=== PATIENT | female | born 1995 | race Caucasian/White ===

== ENCOUNTER 2025-06-02 10:03 | Outpatient (AMB) | payer MEDICAID, SELFPAY ==
[2025-06-02 10:33] VITALS: BP 123/79; PULSE 89; RESP 17; TEMP 36.5; O2SAT 96; BMI 50.5
--- NOTE | 2025-06-02 10:33 | OBCLNT_ITS ---
Vital Signs 06/02/25 10:33 Height 1.68 m Height Method Measured Weight 142.201 kg Weight Measurement Method Standing Scale BMI 50.5 BP 123/79 Blood Pressure Source Automatic Cuff Blood Pressure Location Right Upper Arm Position Sitting Respiration 17 Pulse 89 Pulse Source Monitor Temp 97.7 F Temp Source Temporal Artery Scan Pulse Oximetry (%) 96 Oxygen Delivery Method Room Air Allergies/Home Meds Allergies & Medications Allergies NKA* Allergy (Uncoded 06/02/25 10:34) Medication Reconciliation Vitamin * 1 tab PO QDAY supplement #0 tabs 08/26/14 [History Confirmed 06/02/25] Intake Visit Data Collection New Patient or Established: New Patient (never been to [facility]) Reason for Visit:: OB TRANSFER Consent obtained for Telemed Visit: No Seen by Clinical Staff ONLY (RN/MA): No Technical Documentation Specialist Required: No Do You Feel Safe at Home: Yes Authorities Contacted: N/A PCP or OBGYN visit in last 3 months: No Hx Now: Yes Are you currently on any form of Control: No Pain Present Currently: No Pain Scale Used: Masters-Cotton/Numerical Pain scale:: 0 Smoking Status Smoking Status: Never smoker Questionnaires Covid-19 Vaccine Questionnaire Has patient been vacinated for Covid-19 Have you been vacinated for Covid-19: Yes PHQ-9 PHQ-2 Over the last 2 weeks, how often have you been bothered by any of the following problems? 1. Little interest or pleasure in doing things: not at all 2. Feeling down, depressed, or hopeless: not at all Total score: 0 PHQ-9 3. Trouble falling or staying asleep, or sleeping too much: Not at all 4. Feeling tired or having little energy: Not at all 5. Poor appetite or overeating: Not at all 6. Feeling bad about yourself - or that you are a failure or have let yourself or your family down: Not at all 7. Trouble concentrating on things, such as reading the newspaper or watching television: Not at all 8. Moving or speaking so slowly that other people could have noticed? - Or the opposite - being so fidgety or restless that you have been moving around a lot more than usual: not at all 9. Thoughts that you would be better off or of hurting yourself in some way: Not at all Total score: 0 If you checked off any problems, how difficult have these problems made it for you to do your work, take care of things at home, or get along with other people?: not difficult at all Source: Developed by Drs. Darryl Hernandez, Brenda Aaron, Mukul Thibodeaux and colleagues, with an educational sivakumar from [employer]. Social History Living Situation History Marital Status: Lives With: Family Housing: House Tobacco History Smoking Status: Never smoker Alcohol History Alcohol Intake: Never Domestic Abuse History Do You Feel Safe at Home: Yes History of Present Illness HPI Narrative Alondra Cruz, a woman with a history of 3 C-sections, presents for transfer of care from Dr. Reyse. Her estimated due date is July 08, 2025, e stablished by ultrasound on October 01, 2024, consistent with her last menstrual period. The patient reports feeling a little bit tired and experiencing a little bit of pressure down there, which is expected at this stage of . She denies any contractions or cramping. The baby is moving normally. Her is significant for obesity, multiparity, and an anterior marginal placenta, which is noted to be generally not a risk. She has no diabetes, high blood pressure, or other complications in the . The patient expresses a desire to have her scheduled on a Sunday to accommodate family support for her other children. She has four children, all boys, aged 12, 10, and 5, with this being her fourth son. She has stable ligation consent and plans for a tubal ligation during the . Her obstetric history includes G4 T3 L3, with 3 previous C-sections. The current is significant for obesity, multiparity, 3 previous C- sections, and anterior marginal placenta. The patient's surgical history includes three sections. She lives with her children, including four sons (ages 12, 10, 5, and expecting). Review of systems is positive for fatigue and pelvic pressure. OB Initial Visit OB Flowsheet OB Flowsheet Initial Weight: Not Recorded Date -?-?-?-?-?-?-?-?-?-?-?-?- EGA Weight BP Alb Glu CTX Pres Fundal ht FHR Mov Dilation Station Effacement Hx Notes Visit Note 06/02/25 -?-?-?-?-?-?-?-?-?-?-?-?- 34w 6d 142.201 kg 123/79 absent cephalic 36 14 2 33yo at 34w with h/o 3 prior C-sections, obesity, anterior marginal placenta, reports fatigue and pelvic pressure, FHR 142, no ctx or cramping, ligation consent signed. Plan: Schedule C/S + BTL for 07/03 @12:30 (arrive 10:00), give pre-op instructions 1 week prior, follow-up in 2w then weekly, GBS swab in 1w Menstrual History Menstrual reliability: definite Flow: normal Menstrual regularity: regular Monthly: Yes On control pills at conception: No Date of positive home test: 09/05/24 OB History : 4 Para: 3 Hx # Pregnancies: 0 Hx Total # of Abortions (Spontaneous & Elective): 0 # of Living Children: 3 Infection History & Risk Evaluation History of STDs: none HIV risk evaluation: low risk Hepatitis B risk evaluation: low risk Patient or partner has history of Genital Herpes: No Genetic Screening & History Genetic Screening/Teratology Counseling - Includes patient, baby's father, or anyone in either family with: 1. Patient's age 35 years or older as of estimated date of delivery: No 2. Thalassemia (Telugu, Mongolian, Mediterranean, or Background); MCV less than 80: No 3. Neural Tube Defect (Meningomyelocele, Spina Bifida, or Anencephaly): No 4. Congenital Heart Defect: No 5. Down Syndrome: No 6. Yoshi-Sachs (Ashkenazi Orthodoxy, Cajun, [place]ian [place]): No 7. Agueda Disease (Ashkenazi Orthodoxy): No 8. Familial Dysautonomia (Ashkenazi Orthodoxy): No 9. Sickle Cell Disease or Trait (): No 10. Hemophilia or other blood disorders: No 11. Muscular Dystrophy: No 12. Cystic Fibrosis: No 13. Saima's Chorea: No 14. Mental Retardation/Autism: No 15. Other inherited genetic or chromosomal disorder: No 16. Maternal Metabolic Disorder (EG,TYPE 1 Diabetes, PKU): No 17. Patient or baby's father had a child with defects not listed above: No 18. Recurrent loss or a stillbirth: No 19. Medications (including supplements, vitamins, herbs or otc drugs)/illicit/recreational drugs/alcohol since last menstrual period: No 20. Any other: No Infection History 1. Live with someone with TB or exposed to TB: No 2. Rash or viral illness since last menstrual period: No 3. Hepatitis B,C: No Other (see comments) Source: [employer] Review of Systems Review of Systems Systems Reviewed: All systems reviewed, normal except as documented Exam General Limitations: no limitations General Appearance: alert, in no apparent distress and comfortable Head Head exam: atraumatic and normocephalic Eye Eye exam: Present normal appearance, PERRL and EOMI Neck Neck exam: Present normal inspection and full ROM Chest Chest inspection: Present normal inspection and symmetric chest wall rise; Absent tenderness Resp Respiratory exam: Present normal lung sounds bilaterally; Absent respiratory distress Card Cardiovascular exam: Present regular rate and normal rhythm Abdominal Abdominal exam: Present soft and normal bowel sounds; Absent tenderness, guarding, rebound or rigidity Neuro Neurological exam: Present alert and oriented X3 Psych Psychiatric exam: Present normal affect Office Procedures OB Clinic LOC & Office Proc's Nursing/Assessment Patient Status: Initial/New Patient OB Clinic Nursing Assessment: Medication Reconciliation, Update PMH in EMR and Vital Signs OB Clinic Coordination of Care: Complex Care and Chronic Disease 1-5, Consent,records obtained, informed consent, Education Simp Pt/Fam and 4+ Authorizations needed Special Needs: Heart tones New Patient Charge New Patient Point Assignment: [id number] New Patient Point Charge: INVESTMENT DIRECTOR Level 4 ([id number]) Assessment & Plan Diagnosis / Problem List (1) Supervision of high risk , unspecified, third trimester: Status: Acute Plan Management: Continue care with visits every 2 weeks, then weekly closer to delivery date. Attend scheduled ultrasound appointment tomorrow at [facility]. Perform GBS culture in approximately 1 week. Scheduled Repeat with Bilateral Tubal Ligation: Set for 07/03/2025 at 12:30 PM (39 weeks 2 days gestation). Patient to arrive at hospital at 10:00 AM. Informed consent for tubal ligation previously obtained and documented. Pre-operative Preparation: Patient to complete hospital pre-registration prior to scheduled . Provide pre-operative instructions sheet 1 week prior to surgery.
== END 2025-06-02 10:55 | disposition home or self-care (01) ==
LOC: HODSOBC 10:03
PROVIDERS: Supervising Provider Obstetrics & Gynecology; Visit Provider Obstetrics & Gynecology
DX: O09.293 Supervision of pregnancy with other poor reproductive or obstetric history, third trimester (principal); O34.219 Maternal care for unspecified type scar from previous cesarean delivery; O09.893 Supervision of other high risk pregnancies, third trimester; O99.213 Obesity complicating pregnancy, third trimester; Z3A.34 34 weeks gestation of pregnancy
CPT/HCPCS: 99204; G0463

== ENCOUNTER 2025-06-16 10:23 | Outpatient (AMB) | payer MEDICAID, SELFPAY ==
[2025-06-16 10:33] VITALS: BP 126/85; PULSE 93; RESP 18; TEMP 36.7; O2SAT 96; BMI 50.4
--- NOTE | 2025-06-16 10:33 | OBCLNT_ITS ---
Vital Signs 06/16/25 10:33 Height 1.68 m Height Method Stated Weight 142.428 kg Weight Measurement Method Standing Scale BMI 50.4 BP 126/85 H Blood Pressure Source Automatic Cuff Blood Pressure Location Left Upper Arm Position Sitting Respiration 18 Pulse 93 Pulse Source Monitor Temp 98.1 F Temp Source Oral Pulse Oximetry (%) 96 Oxygen Delivery Method Room Air Allergies/Home Meds Allergies & Medications Allergies No Known Allergies Allergy (Verified 07/03/25 05:46) Medication Reconciliation Vitamin * 1 tab PO QDAY supplement #0 tabs 08/26/14 [History Confirmed 07/03/25] Intake Visit Data Collection New Patient or Established: Established Patient (seen at [facility] within 3 years) Reason for Visit:: CARE Seen by Clinical Staff ONLY (RN/MA): No Brand Protection Manager Required: No Do You Feel Safe at Home: Yes Authorities Contacted: N/A PCP or OBGYN visit in last 3 months: Yes Hx Now: No Are you currently on any form of Control: No Pain Present Currently: No Pain Scale Used: Masters-Cotton/Numerical Pain scale:: 0 Smoking Status Smoking Status: Never smoker Questionnaires Covid-19 Vaccine Questionnaire Has patient been vacinated for Covid-19 Have you been vacinated for Covid-19: Yes PHQ-9 PHQ-2 Over the last 2 weeks, how often have you been bothered by any of the following problems? 1. Little interest or pleasure in doing things: not at all 2. Feeling down, depressed, or hopeless: not at all Total score: 0 PHQ-9 3. Trouble falling or staying asleep, or sleeping too much: Not at all 4. Feeling tired or having little energy: Not at all 5. Poor appetite or overeating: Not at all 6. Feeling bad about yourself - or that you are a failure or have let yourself or your family down: Not at all 7. Trouble concentrating on things, such as reading the newspaper or watching television: Not at all 8. Moving or speaking so slowly that other people could have noticed? - Or the opposite - being so fidgety or restless that you have been moving around a lot more than usual: not at all 9. Thoughts that you would be better off or of hurting yourself in some way: Not at all Total score: 0 Source: Developed by Drs. Darryl Hernandez, Brenda Aaron, Mukul Thibodeaux and colleagues, with an educational sivakumar from [employer]. Depression screen completed yes Social History Living Situation History Lives With: Family Housing: House Tobacco History Smoking Status: Never smoker Alcohol History Alcohol Intake: Never Domestic Abuse History Do You Feel Safe at Home: Yes Care OB Visit Log OB Flowsheet Initial Weight: Not Recorded Date -?-?-?-?-?-?-?-?-?-?-?-?- EGA Weight BP Alb Glu CTX Pres Fundal ht FHR Mov Dilation Station Effacement Hx Notes Visit Note 06/02/25 -?-?-?-?-?-?-?-?-?-?-?-?- 34w 6d 142.201 kg 123/79 absent cephalic 36 14 2 33yo at 34w with h/o 3 prior C-sections, obesity, anterior marginal placenta, reports fatigue and pelvic pressure, FHR 142, no ctx or cramping, ligation consent signed. Plan: Schedule C/S + BTL for 07/03 @12:30 (arrive 10:00), give pre-op instructions 1 week prior, follow-up in 2w then weekly, GBS swab in 1w 06/16/25 -?-?-?-?-?-?-?-?-?-?-?-?- 36w 6d 142.428 kg 126/85 absent cephalic 37 14 5 progressing normally at 36-37 weeks gestation. heart rate 155 bpm, within normal range. Ultrasound findings unremarkable with cephalic presentation and anterior placenta, no previa noted. Patient denies contractions or other concerning symptoms. Group B Streptococcus (GBS) screening swab obtained. Plan - Follow up in one week - Scan ultrasound report into patient's chart for reference during delivery KIMBERLEE Calculator Estimated Delivery Date Method Current WG Current Estimate 07/08/25 LMP (Certain) 39w 2d Notes Visit Date: 06/02/25 Last Updated by: Richie Asher MD Problem List - - Obesity - Multiparity - History of 3 sections - Anterior marginal placenta Office Procedures OB Clinic LOC & Office Proc's Nursing/Assessment Patient Status: Established Patient OB Clinic Nursing Assessment: Medication Reconciliation, Update PMH in EMR and Vital Signs OB Clinic Coordination of Care: Complex Care and Chronic Disease 1-5, Consent,records obtained, informed consent, Education Simp Pt/Fam, 1 Ins Authorization, Lab and Imaging orders, Results/Orders obtained and Staff clarify orders Special Needs: Heart tones Established Patient Charge Established Patient Point Assignment: 150 Established Patient Point Charge: EP Level 4 (120-155) Assessment & Plan Diagnosis / Problem List (1) Supervision of high risk , unspecified, third trimester: Status: Acute (2) Maternal care for low transverse scar from previous delivery: Status: Acute
== END 2025-06-16 10:40 | disposition home or self-care (01) ==
LOC: HODSOBC 10:23
PROVIDERS: Supervising Provider Obstetrics & Gynecology; Visit Provider Obstetrics & Gynecology
DX: O09.293 Supervision of pregnancy with other poor reproductive or obstetric history, third trimester (principal); O34.211 Maternal care for low transverse scar from previous cesarean delivery; Z36.85 Encounter for antenatal screening for Streptococcus B; Z3A.36 36 weeks gestation of pregnancy
CPT/HCPCS: 99214; G0463

== ENCOUNTER 2025-06-26 10:12 | Outpatient (AMB) | payer MEDICAID, SELFPAY ==
[2025-06-26 10:22] VITALS: BP 125/79; PULSE 97; RESP 17; TEMP 36.4; O2SAT 97; BMI 50.9
--- NOTE | 2025-06-26 10:22 | OBCLNT_ITS ---
Vital Signs 06/26/25 10:22 Height 1.68 m Height Method Measured Weight 143.789 kg Weight Measurement Method Standing Scale BMI 50.9 BP 125/79 Blood Pressure Source Automatic Cuff Blood Pressure Location Right Upper Arm Position Sitting Respiration 17 Pulse 97 Pulse Source Monitor Temp 97.5 F Temp Source Temporal Artery Scan Pulse Oximetry (%) 97 Oxygen Delivery Method Room Air Allergies/Home Meds Allergies & Medications Allergies No Known Allergies Allergy (Verified 07/03/25 05:46) Medication Reconciliation Vitamin * 1 tab PO QDAY supplement #0 tabs 08/26/14 [History Confirmed 07/03/25] Intake Visit Data Collection New Patient or Established: Established Patient (seen at [facility] within 3 years) Reason for Visit:: C Consent obtained for Telemed Visit: No Seen by Clinical Staff ONLY (RN/MA): No Double End Tenon Operator Required: No Do You Feel Safe at Home: Yes Authorities Contacted: N/A PCP or OBGYN visit in last 3 months: Yes Date of Last PCP or OBGYN visit: 06/16/25 Hx Now: Yes Are you currently on any form of Control: No Pain Present Currently: No Pain Scale Used: Masters-Cotton/Numerical Pain scale:: 0 Smoking Status Smoking Status: Never smoker Questionnaires Covid-19 Vaccine Questionnaire Has patient been vacinated for Covid-19 Have you been vacinated for Covid-19: Yes PHQ-9 PHQ-2 Over the last 2 weeks, how often have you been bothered by any of the following problems? 1. Little interest or pleasure in doing things: not at all PHQ-9 8. Moving or speaking so slowly that other people could have noticed? - Or the opposite - being so fidgety or restless that you have been moving around a lot more than usual: not at all Source: Developed by Drs. Darryl Hernandez, Brenda Aaron, Mukul Thibodeaux and colleagues, with an educational sivakumar from [employer]. Social History Living Situation History Lives With: Family Housing: House Tobacco History Smoking Status: Never smoker Alcohol History Alcohol Intake: Never Domestic Abuse History Do You Feel Safe at Home: Yes Care OB Visit Log OB Flowsheet Initial Weight: Not Recorded Date -?-?-?-?-?-?-?-?-?-?-?-?- EGA Weight BP Alb Glu CTX Pres Fundal ht FHR Mov Dilation Station Effacement Hx Notes Visit Note 06/02/25 -?-?-?-?-?-?-?-?-?-?-?-?- 34w 6d 142.201 kg 123/79 absent cephalic 36 14 2 33yo at 34w with h/o 3 prior C-sections, obesity, anterior marginal placenta, reports fatigue and pelvic pressure, FHR 142, no ctx or cramping, ligation consent signed. Plan: Schedule C/S + BTL for 07/03 @12:30 (arrive 10:00), give pre-op instructions 1 week prior, follow-up in 2w then weekly, GBS swab in 1w 06/16/25 -?-?-?-?-?-?-?-?-?-?-?-?- 36w 6d 142.428 kg 126/85 absent cephalic 37 14 5 progressing normally at 36-37 weeks gestation. heart rate 155 bpm, within normal range. Ultrasound findings unremarkable with cephalic presentation and anterior placenta, no previa noted. Patient denies contractions or other concerning symptoms. Group B Streptococcus (GBS) screening swab obtained. Plan - Follow up in one week - Scan ultrasound report into patient's chart for reference during delivery 06/26/25 -?-?-?-?-?-?-?-?-?-?-?-?- 38w 2d 143.789 kg 125/79 absent cephalic 39 15 2 37-week progressing normally. Negative culture swab results. Patient reports no contractions, active movement, and denies leaking, bleeding, or spotting. heart rate 152 bpm, which is within normal range. Planned section scheduled for next week. - Sched uled next week at 12:30 PM - Patient to check in at 10:00 AM on the day of surgery - No food or drink after midnight the ni ght before surgery - No further appointments scheduled befo re - If any issues arise, patient instructe d to come to the unit sooner KIMBERLEE Calculator Estimated Delivery Date Method Current WG Current Estimate 07/08/25 LMP (Certain) 39w 2d Notes Visit Date: 06/02/25 Last Updated by: Richie Asher MD Problem List - - Obesity - Multiparity - History of 3 sections - Anterior marginal placenta Office Procedures OB Clinic LOC & Office Proc's Nursing/Assessment Patient Status: Established Patient OB Clinic Nursing Assessment: Medication Reconciliation, Update PMH in EMR and Vital Signs OB Clinic Coordination of Care: Complex Care and Chronic Disease 1-5, Education Complex Pt/Fam and Consent,records obtained, informed consent Special Needs: Heart tones Established Patient Charge Established Patient Point Assignment: 110 Established Patient Point Charge: EP Level 3 (80-115) Assessment & Plan Diagnosis / Problem List (1) Maternal care for low transverse scar from previous delivery: Status: Acute (2) Supervision of high risk , unspecified, third trimester: Status: Acute
== END 2025-06-26 10:29 | disposition home or self-care (01) ==
LOC: HODSOBC 10:12
PROVIDERS: Supervising Provider Obstetrics & Gynecology; Visit Provider Obstetrics & Gynecology
DX: O09.293 Supervision of pregnancy with other poor reproductive or obstetric history, third trimester (principal); O34.211 Maternal care for low transverse scar from previous cesarean delivery; Z3A.38 38 weeks gestation of pregnancy
CPT/HCPCS: 99213; G0463

== ENCOUNTER 2025-07-03 05:26 | Inpatient (IN) | payer MEDICAID, SELFPAY ==
[2025-07-03] VITALS (16 sets, daily range): BP systolic 116–149; BP diastolic 50–106; PULSE 66–95; RESP 14–24; TEMP 36.5–36.9; O2SAT 95–100; BMI 51.0
[2025-07-03 06:17] LABS: Basophils # (Auto) 0.0 Thou/mm3 (0.0-0.2); Basophils % (Auto) 0 % (0-2.5); Eosinophils # (Auto) 0.2 Thou/mm3 (0.0-0.5); Eosinophils % (Auto) 2 % (0-10); Hematocrit 37.6 % (36.0-46.0); Hemoglobin 12.9 g/dL (12.0-16.0); Immature Granulocytes Auto 0.02 Thou/mm3 (0.00-0.00); Lymphocytes # (Auto) 1.7 Thou/mm3 (1.0-4.8); Lymphocytes % (Auto) 21 % (10-50); Mean Corpuscular HGB Conc 34.3 g/dl (31.0-37.0); Mean Corpuscular Hemoglobin 29.7 pg (25.0-35.0); Mean Corpuscular Volume 87 fL (80-100); Monocytes # (Auto) 0.5 Thou/mm3 (0.0-0.8); Monocytes % (Auto) 6 % (0-12); Neutrophils # (Auto) 5.8 Thou/mm3 (1.8-7.7); Neutrophils % (Auto) 71 % (37-80); Nucleated Red Blood Cell # 0.00 Thou/mm3 (0.00-0.00); Nucleated Red Blood Cell % 0 /100 WBC (0); Platelet Count 217 Thou/mm3 (140-440); RDW Standard Deviation 42.1 fL (36.4-46.3); Red Blood Count 4.34 Miln/mm3 (4.00-5.20); White Blood Count 8.2 Thou/mm3 (3.6-11.0)
[2025-07-03 06:55] LABS: Syphilis Nonreactive (Nonreactive)
[2025-07-03] MEDS: RINGERS LACTATED 1000 ML 1,000 ML 999 ML IV (07:00)
--- NOTE | 2025-07-03 07:10 | PD.LDHP ---
Documentation for date of: 07/03/25 OB Labor/Induct. HPI History of Present Illness Chief complaint: Scheduled repeat BTL : 4 Para: 3 Term pregnancies: 3 pregnancies: 0 Living children: 3 History of Abortions: Spontaneous and Elective: 0 History of sections: Yes (c/s x3) Date of last menstrual period: 10/01/24 KIMBERLEE: 07/08/25 Gestational age based on last menstrual period: 39 History of present illness: Lyndsey Valdez is a 4, para 3 patient at 39 weeks and 2 days gestation presenting for a scheduled repeat low transverse section. Her estimated due date is 07-08-2025 based on a certain last menstrual period. The patient transferred her care to this office during her current . In the third trimester, she provided a maternal- medicine ultrasound from 06-03-2025. She initially began her care with Dr. Reyes at [facility] before transferring. Ms. Valdez has a history of three previous sections. She has expressed interest in undergoing a bilateral tubal ligation during today's procedure. The patient is currently admitted for inpatient status to proceed with the scheduled repeat section and bilateral tubal ligation. She is a patient with an obstetric history of L3. Her current gestational age is 39 weeks and 2 days with an estimated due date of July 08, 2025 based on certain LMP. 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 Labs Labs: Negative: RPR, Hepatitis B, Rubella Titre, HIV, Chlamydia, Gonorrhea and Group Beta Strep and Unknown: Herpes Type 1, Herpes Type 2 and Covid-19 Past Medical History Surgical History SURGICAL: Positive Section (c/s x3) Meds Home Medications and Allergies Home Medications ?Medication ?Instructions ?Recorded ?Confirmed ?Type Vitamin * 1 tab PO QDAY supplement 08/26/14 07/03/25 History #0 tabs Allergies Allergy/AdvReac Type Severity Reaction Status Date / Time No Known Allergies Allergy Verified 07/03/25 05:46 OB Exam Physical Exam Vital signs: Pulse BP 78 140/89 H 07/03/25 05:46 07/03/25 05:46 Constitutional Constitutional: no acute distress Routine HEENT Exam Head: Present normocephalic and atraumatic Eye: Present EOMI and PERRL ENT: Present mucous membranes moist Routine Neck Exam Neck: Present supple and trachea midline Routine Cardiovascular Exam Cardiovascular: Present RRR Routine Abdominal Exam Abdominal: Present soft and normoactive bowel sounds Detailed Labor and Delivery Exam Dilation (cm): 0 Baseline heart rate: 140 monitor accelerations: 15x15 monitor decelerations: None Routine Extremities Exam Extremities: Present full ROM Routine Skin Exam Skin: Present intact, dry and warm Routine Neurological Exam Neurological: Present alert, oriented X3 and CN II-XII intact Routine Psychiatric Exam Psychiatric: Present normal affect and normal thought process OB Results Labs 07/03/25 06:00 Labs: Short CBC 07/03/25 Range/Units 06:00 WBC 8.2 (3.6-11.0) Thou/mm3 Hgb 12.9 (12.0-16.0) g/dL Hct 37.6 (36.0-46.0) % Plt Count 217 (140-440) Thou/mm3 OB Assessment & Plan Assessment and Plan (1) Maternal care for low transverse scar from previous delivery: Status: Acute Assessment and plan: Scheduled Repeat with Bilateral Tubal Ligation: - at 39 weeks and 2 days gestation presenting for scheduled repeat low transverse . - History of 3 previous C-sections. - Patient has expressed interest in bilateral tubal ligation to be performed during the procedure. - care initially started with Dr. Reyes at [facility] and later transferred to our office. - Third-trimester MF ultrasound performed on 06-03-2025. Plan: - Admit to inpatient status for repeat and bilateral tubal ligation. - Establish IV access. - Initiate LR at 125 cc/hr. - Obtain pre-operative labs: CBC, type and screen, RPR. - Implement continuous maternal- monitoring. - Administer planned spinal anesthesia. - Verify and sign surgical concerns. - Schedule OR for 7:30. (2) Supervision of high risk , unspecified, third trimester: Status: Acute
[2025-07-03] MEDS: FAMOTIDINE INJ 10 MG/ML VIAL 2 ML 20 MG IV (07:21)
[2025-07-03] MEDS: ceFAZolin/D5W 2 GM IV 2 GM/100 ML BAG IV ×3 (07:25→21:47)
[2025-07-03] MEDS: METOCLOPRAMIDE INJ 5 MG/ML VIAL 2 ML 10 MG IVP (07:26)
--- NOTE | 2025-07-03 08:33 | PD.LDDS ---
DS: Providers Provider Date of admission: 07/03/25 05:26 Primary care physician: Physician No Primary/Family Admitting Provider: Richie Asher MD Attending Provider on Admission: Patrick Goldsmith MD Attending Provider on DC: Patrick Goldsmith MD Discharging Provider: Patrick Goldsmith MD DS: Diagnosis Problem List Completed Was Problem List Reviewed/Reconciled?: Yes Summary/Hosp Course Brief History: Lyndsey Valdez is a 4, para 3 patient at 39 weeks and 2 days gestation presenting for a scheduled repeat low transverse section. Her estimated due date is 07-08-2025 based on a certain last menstrual period. The patient transferred her care to this office during her current . In the third trimester, she provided a maternal- medicine ultrasound from 06-03-2025. She initially began her care with Dr. Reyes at [facility] before transferring. Ms. Valdez has a history of three previous sections. She has expressed interest in undergoing a bilateral tubal ligation during today's procedure. The patient is currently admitted for inpatient status to proceed with the scheduled repeat section and bilateral tubal ligation. She is a patient with an obstetric history of L3. Her current gestational age is 39 weeks and 2 days with an estimated due date of July 08, 2025 based on certain LMP. 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 Peripartum Data Delivery Method: Low Transverse Procedures: Procedures Operation Date: 07/03/25 07:45 <No data on this case meets the specified criteria> Time Spent with Patient Time attestation: Total time spent providing and/or coordinating discharge services: Exam Vital Signs Temp Pulse Resp BP 97.7 F 78 18 140/89 H 07/03/25 07:12 07/03/25 05:46 07/03/25 07:12 07/03/25 05:46 Discharge Plan Plan Patient Disposition: HOME (Self Care) Patient condition on transfer: Stable Prescriptions/Referrals Prescriptions/Med Rec: New hydrocodone-acetaminophen 5-325 mg tablet 1 tab PO Q6H MDD 4 PRN (Reason: pain) 7 Days Qty: 28 0RF docusate sodium [Stool Softener] 100 mg capsule 100 mg PO QDAY 30 Days Qty: 30 0RF ibuprofen 600 mg tablet 600 mg PO Q6H PRN (Reason: fever or pain) 10 Days Qty: 40 0RF Continued Vitamin * 1 EACH tablet 1 tab PO QDAY Qty: 0 Referrals: Richie Asher MD [Physician] - No Primary/Family,Physician [Primary Care Provider] - Patient/Caregiver Discharge Instructions Discharge Activity: activity as tolerated Other Discharge Activity Instructions:: Follow up office 1 week. Education Materials: C Section Dc Print Language: Khmer Stand Alone Forms: Perla Award Info., Patient Portal Info Letter Discharge Order Discharge Orders: Discharge (Routine); Ordered 07/05/25 Ordered By: Patrick Goldsmith Planned Discharge Date 07/05/25
--- NOTE | 2025-07-03 08:40 | ESOP_ITS ---
Operative Note - INFORMATION ASSOC Procedure Date of procedure: 07/03/25 Procedure Performed: Repeat low-transverse section #4 Bilateral salpingectomy Indication: 29-year-old 4 para 3 at 39 weeks 2 days with previous x 3 Patient desires surgical sterilization Anesthesia type: Spinal Procedure description: Informed consent was obtained and the patient was brought to the operating room. Identity was verified using two patient identifiers. She was placed in the supine position and spinal anesthesia was administered. The abdomen and perineum were prepped and draped in the usual sterile fashion. A Yang catheter was placed for continuous drainage. A surgical timeout was completed. A Pfannenstiel skin incision was made with a scalpel. Upon entry, dense scar tissue was encountered extending from the subcutaneous tissue through to the rectus fascia, which was obscured and difficult to identify. Careful dissection was performed layer by layer. Once the rectus fascia was isolated and incised, a small peritoneal window was identified. However, the peritoneal opening could not be safely stretched, and the bladder was protruding through the opening. To achieve sufficient access, both rectus muscles were dissected in a Maillard fashion, creating adequate lateral space. Upon entering the abdominal cavity, dense adhesions were noted: Left adnexa was adherent to the anterior abdominal wall and peritoneum Uterine fundus was adhered to small bowel All adhesions were carefully taken down using a combination of sharp dissection and electrocautery to safely expose the lower uterine segment. Delivery was then performed in the standard manner. A low transverse uterine incision was made, and the amniotic membranes were ruptured. The fetus was delivered without difficulty. The umbilical cord was clamped and cut, and the placenta was delivered spontaneously. The hysterotomy was closed in a single layer using 1-0 Monocryl in a running locked fashion, with additional ieztub-ij-[id number] sutures placed for hemostasis. A bilateral salpingectomy was then performed using the ENSEAL device. First the right fallopian tube was grabbed using a pair of [place] clamps to expose the mesosalpinx. The Enseal was used to perform a complete salpingectomy starting dissection from the fimbriated end and completing at the uterine cornua. The same procedure was repeated on the left side. All dissection sites were inspected and noted to be hemostatic. After the uterus was returned to the pelvis, persistent oozing was noted from the cut ends of both rectus muscles, which were controlled using a combination of electrocautery and [id number] sutures. The rectus fascia was reidentified and grasped with a series of Estevan clamps, then closed using 0 Vicryl in a running fashion. The Scarpas fascia was approximated with an additional layer of 0 Vicryl, and 2-0 plain was used to re- approximate the subcutaneous layer. The skin was closed using INSORB absorbable isma, and a Dermabond Prineo dressing was applied, followed by a pressure dressing. The patient was undraped and transferred to recovery in stable and awake condition. She tolerated the procedure well. All sponge, instrument, and lap counts were correct ?2. Specimen: left tube and right tube Estimated blood loss (ml): 750 Complications: none Surgical staff Operation Date: 07/03/25 07:45 <No data on this case meets the specified criteria> Diagnosis Discharge Diagnosis (1) Maternal care for low transverse scar from previous delivery: Status: Acute (2) Supervision of high risk , unspecified, third trimester: Status: Acute (3) Encounter for sterilization: Status: Acute Problem List Completed Was Problem List Reviewed/Reconciled?: Yes
--- NOTE | 2025-07-03 08:44 | PD.LDDELS ---
Data (Rodriguez) Data Hx Section: Yes (c/s x3) : 4 Term: 3 : 0 Livin Abortions: Spontaneous & Theraputic: 0 Delivery Data (Rodriguez) Labor Data Induction/Augmentation Agent: Artificial ROM ROM date: 07/03/25 ROM time: 08:06 Amniotic membrane rupture type: Artificial Amniotic fluid description: Clear Delivery Data delivery date: 07/03/25 delivery time: 08:06 Placenta delivery date: 07/03/25 Placenta delivery time: 08:07 Delivered by: Richie Asher Delivery nurse: Leidy MARS RN/ Lizandro OLVERA RN [place] nurse: CHAI ARITA Veterinary Practitioner at delivery: No Support person(s) at delivery: FATHER OF THE BABY Other staff at delivery: Leidy JhaveriSTUDENT VOCATINAL NURSE Irvin HOLLIS STUDENT VOCATIONAL NURSE Delivery Method Delivery method: Low Transverse Presentation: Vertex Anesthesia Type Anesthesia Type: Spinal Anesthesia type: Spinal Placenta Placenta delivery description: Manual Removal Cord blood sent to lab: Yes cord blood collection: Cord Blood Type Episiotomy Episiotomy description: None Umbilical Cord cord description: 3 Vessels Data (Rodriguez) [place] Data [place]'s gender: Male Identification band number: [id number] weight (gms): 3420 g Weight (pounds): 7 lbs and 8.6 ozs length: 54 cm 1 minute: 8 5 minutes: 9
[2025-07-03] MEDS: OXYTOCIN in NS 20 units 20 UNIT/1,000 ML BAG 125 UNIT IV ×2 (09:10→16:19)
[2025-07-03 16:15] LABS: Basophils # (Auto) 0.0 Thou/mm3 (0.0-0.2); Basophils % (Auto) 0 % (0-2.5); Eosinophils # (Auto) 0.1 Thou/mm3 (0.0-0.5); Eosinophils % (Auto) 1 % (0-10); Hematocrit 36.7 % (36.0-46.0); Hemoglobin 12.5 g/dL (12.0-16.0); Immature Granulocytes Auto 0.03 Thou/mm3 (0.00-0.00); Lymphocytes # (Auto) 1.3 Thou/mm3 (1.0-4.8); Lymphocytes % (Auto) 12 % (10-50); Mean Corpuscular HGB Conc 34.1 g/dl (31.0-37.0); Mean Corpuscular Hemoglobin 29.7 pg (25.0-35.0); Mean Corpuscular Volume 87 fL (80-100); Monocytes # (Auto) 0.5 Thou/mm3 (0.0-0.8); Monocytes % (Auto) 4 % (0-12); Neutrophils # (Auto) 9.1 Thou/mm3 (1.8-7.7); Neutrophils % (Auto) 83 % (37-80); Nucleated Red Blood Cell # 0.00 Thou/mm3 (0.00-0.00); Nucleated Red Blood Cell % 0 /100 WBC (0); Platelet Count 175 Thou/mm3 (140-440); RDW Standard Deviation 42.8 fL (36.4-46.3); Red Blood Count 4.21 Miln/mm3 (4.00-5.20); White Blood Count 11.1 Thou/mm3 (3.6-11.0)
[2025-07-03] MEDS: IBUPROFEN TAB 400 MG TABLET 800 MG PO (17:15)
--- NOTE | 2025-07-03 19:39 | PC.NURSE ---
Patient's bleeding is minimal, TXA not given, MD aware.
[2025-07-03] MEDS: HYDROcodone/APAP 5/325 TABLET 1 TAB PO (19:52)
[2025-07-04 04:05] VITALS: BP 131/83; PULSE 86; RESP 20; TEMP 36.8; O2SAT 97
[2025-07-04] MEDS: IBUPROFEN TAB 400 MG TABLET 800 MG PO (04:27)
[2025-07-04 05:23] LABS: Basophils # (Auto) 0.0 Thou/mm3 (0.0-0.2); Basophils % (Auto) 0 % (0-2.5); Eosinophils # (Auto) 0.1 Thou/mm3 (0.0-0.5); Eosinophils % (Auto) 1 % (0-10); Hematocrit 35.1 % (36.0-46.0); Hemoglobin 11.9 g/dL (12.0-16.0); Immature Granulocytes Auto 0.04 Thou/mm3 (0.00-0.00); Lymphocytes # (Auto) 0.7 Thou/mm3 (1.0-4.8); Lymphocytes % (Auto) 7 % (10-50); Mean Corpuscular HGB Conc 33.9 g/dl (31.0-37.0); Mean Corpuscular Hemoglobin 29.5 pg (25.0-35.0); Mean Corpuscular Volume 87 fL (80-100); Monocytes # (Auto) 0.5 Thou/mm3 (0.0-0.8); Monocytes % (Auto) 5 % (0-12); Neutrophils # (Auto) 9.2 Thou/mm3 (1.8-7.7); Neutrophils % (Auto) 87 % (37-80); Nucleated Red Blood Cell # 0.00 Thou/mm3 (0.00-0.00); Nucleated Red Blood Cell % 0 /100 WBC (0); Platelet Count 175 Thou/mm3 (140-440); RDW Standard Deviation 42.3 fL (36.4-46.3); Red Blood Count 4.04 Miln/mm3 (4.00-5.20); White Blood Count 10.6 Thou/mm3 (3.6-11.0)
[2025-07-04] MEDS: ceFAZolin/D5W 2 GM IV 2 GM/100 ML BAG IV (06:07)
--- NOTE | 2025-07-04 07:16 | PD.LDPPPRG ---
Subjective Subjective Interval history: Patient denies any prior complaint. She is voiding and ambulating and tolerating a regular diet. She denies any excessive vaginal bleeding. She denies any dizziness or lightheadedness. She denies any nausea or vomiting. She is passing flatus. She denies any chest pain palpitation shortness of breath or lower extremity pain. Exam Vital Signs Temp Pulse Resp BP Pulse Ox O2 Del Method 98.3 F 86 20 131/83 H 97 Room Air 07/04/25 04:05 07/04/25 04:05 07/04/25 04:05 07/04/25 04:05 07/04/25 04:05 07/04/25 04:05 Routine Respiratory Exam Comments: Clear to auscultation bilaterally Routine Cardiovascular Exam Comments: Regular rate and rhythm Routine Abdominal Exam Comments: Nondistended, incision clear and intact, fundus is firm Routine Extremities Exam Comments: Nontender Objective Labs 07/04/25 05:00 Labs: Laboratory Results - last 24 hr 07/03/25 07/03/25 07/04/25 06:00 15:47 05:00 WBC 11.1 H 10.6 RBC 4.21 4.04 Hgb 12.5 11.9 L Hct 36.7 35.1 L MCV 87 87 MCH 29.7 29.5 MCHC 34.1 33.9 RDW Std Deviation 42.8 42.3 Plt Count 175 D 175 Neut % (Auto) 83 H 87 H Lymph % (Auto) 12 7 L [place] % (Auto) 4 5 Eos % (Auto) 1 1 Baso % (Auto) 0 0 Neut # (Auto) 9.1 H 9.2 H Lymph # (Auto) 1.3 0.7 L [place] # (Auto) 0.5 0.5 Eos # (Auto) 0.1 0.1 Baso # (Auto) 0.0 0.0 Immature Gran # (Auto) 0.03 H 0.04 H Absolute Nucleated RBC 0.00 0.00 Immature Gran % 0 0 Nucleated RBC % 0 0 Blood Type O Positive Antibody Screen NEGATIVE Crossmatch See Detail Blood Bank Wristband ID Yes Impressions Impression: Postop day #1 status post delivery and bilateral salpingectomy complicated by severe pelvic adhesions with subsequent lysis of adhesions and made large dissection of rectus muscles Stable hemoglobin Hemodynamically stable Encourage ambulation Remove dressing DC IV support Assessment & Plan Problem List (1) Maternal care for low transverse scar from previous delivery: Status: Acute (2) Supervision of high risk , unspecified, third trimester: Status: Acute (3) Encounter for sterilization: Status: Acute Time Spent With Patient Time: Total time spent is greater than 50% in coordination of care (as documented) at patient's floor/unit and/or counseling patient:
[2025-07-04 07:30] VITALS: BP 105/70; PULSE 85; RESP 16; TEMP 36.4; O2SAT 97
[2025-07-04] MEDS: DOCUSATE SOD 100 MG CAPSULE PO (08:50)
[2025-07-04 12:00] VITALS: BP 125/84; PULSE 90; RESP 17; TEMP 36.6; O2SAT 97
[2025-07-04] MEDS: HYDROcodone/APAP 5/325 TABLET 1 TAB PO ×2 (15:18→20:17)
[2025-07-04 19:49] VITALS: BP 138/74; PULSE 98; RESP 19; TEMP 36.6; O2SAT 97
[2025-07-05] MEDS: IBUPROFEN TAB 400 MG TABLET 800 MG PO ×2 (00:11→08:53)
[2025-07-05 03:50] VITALS: BP 130/74; PULSE 78; RESP 15; TEMP 36.4; O2SAT 96
--- NOTE | 2025-07-05 08:50 | PD.LDPPPRG ---
Subjective Subjective Interval history: Patient denies any primary complaint.. She is voiding and ambulating and tolerating her diet. She denies any excessive vaginal bleeding. She denies any dizziness or lightheadedness. She denies any chest pain palpitation shortness of breath or lower extremity pain Exam Vital Signs Temp Pulse Resp BP Pulse Ox O2 Del Method 97.6 F 78 15 130/74 96 Room Air 07/05/25 03:50 07/05/25 03:50 07/05/25 03:50 07/05/25 03:50 07/05/25 03:50 07/05/25 03:50 Routine Respiratory Exam Comments: Clear to auscultation bilaterally Routine Cardiovascular Exam Comments: Regular rate and rhythm Routine Abdominal Exam Comments: Incision clear and intact fundus is firm Routine Extremities Exam Comments: Nontender Objective Labs 07/04/25 05:00 Impressions Impression: Postop day #2 status post delivery and bilateral salpingectomy with lysis of adhesions Discharge home Discharge instructions given Follow-up in the office in 1 week Assessment & Plan Problem List (1) Maternal care for low transverse scar from previous delivery: Status: Acute (2) Supervision of high risk , unspecified, third trimester: Status: Acute (3) Encounter for sterilization: Status: Acute Time Spent With Patient Time: Total time spent is greater than 50% in coordination of care (as documented) at patient's floor/unit and/or counseling patient:
[2025-07-05] MEDS: DOCUSATE SOD 100 MG CAPSULE PO (08:53)
== END 2025-07-05 11:29 | disposition home or self-care (01) | DRG 539 ==
LOC: S4SX 08:09 → S4NX 08:22
PROVIDERS: Admitting Provider Obstetrics & Gynecology; Visit Provider Specialist
PROC: 0UL70ZZ Occlusion of Bilateral Fallopian Tubes, Open Approach (ICD-10-PCS; CPT 59514; principal; 2025-07-03 07:30)
DX: O34.211 Maternal care for low transverse scar from previous cesarean delivery (principal); Z30.2 Encounter for sterilization; Z3A.39 39 weeks gestation of pregnancy; Z37.0 Single live birth; K66.0 Peritoneal adhesions (postprocedural) (postinfection)
CPT/HCPCS: 36415; 59409; 85025; 86780; 86850; 86900; 86901; 86923; 94762; A4217; A4649; J0689; J2274; J2371; J2590; J2765; J3010; J3490; J7120; A9270; J2270

== ENCOUNTER 2025-07-15 11:20 | Outpatient (AMB) | payer MEDICAID, SELFPAY ==
[2025-07-15 12:12] VITALS: BP 113/75; PULSE 73; RESP 16; TEMP 36.7; O2SAT 97; BMI 48.9
--- NOTE | 2025-07-15 12:12 | AMB.OBPP ---
Vital Signs 07/15/25 12:12 Height 1.68 m Height Method Stated Weight 137.665 kg Weight Measurement Method Standing Scale BMI 48.9 BP 113/75 Blood Pressure Source Automatic Cuff Blood Pressure Location Left Upper Arm Position Sitting Respiration 16 Pulse 73 Pulse Source Monitor Temp 98.1 F Temp Source Oral Pulse Oximetry (%) 97 Oxygen Delivery Method Room Air Allergies/Home Meds Allergies & Medications Allergies No Known Allergies Allergy (Verified 08/18/25 11:49) Intake Visit Data Collection New Patient or Established: Established Patient (seen at [facility] within 3 years) Reason for Visit:: POST Seen by Clinical Staff ONLY (RN/MA): No Insurance Claim Approver Required: No Do You Feel Safe at Home: Yes Authorities Contacted: N/A PCP or OBGYN visit in last 3 months: Yes Hx Now: No Are you currently on any form of Control: No Pain Present Currently: No Pain Scale Used: Masters-Cotton/Numerical Pain scale:: 0 Smoking Status Smoking Status: Never smoker 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 History Past Medical History: No Hx Neurological Disorders, No Hx Breast Cancer, No Hx Cardiac Disorders, No Hx Cancer, No Hx Blood Disorders, Yes Hx Gastrointestinal Disorders, No Hx Renal Disease, No Hx Diabetes Mellitus Type 1 and No Hx Diabetes Mellitus Type 2 Questionnaires Covid-19 Vaccine Questionnaire Has patient been vacinated for Covid-19 Have you been vacinated for Covid-19: Yes Social History Living Situation History Lives With: Family Housing: House Tobacco History Smoking Status: Never smoker Alcohol History Alcohol Intake: Never Domestic Abuse History Do You Feel Safe at Home: Yes EPDS - PP Depression Screening [place] Pospartum Depression Screen I have been able to laugh and see the funny side of things: (0) As much as I always could I have looked forward with enjoyment to things: (0) As much as I ever did I have blamed myself unnecessarily when things went wrong: (0) No, never I have been anxious or worried for no good reason: (0) No, not at all I have felt scared or panicky for no very good reason: (0) No, not at all Things have been getting on top of me: (0) No, I have been coping as well as ever I have been so unhappy that I have had difficulty sleeping: (0) No, not at all I have felt sad or miserable: (0) No, not at all I have been so unhappy that I have been crying: (0) No, never The thought of harming myself has occurred to me: (0) Never EPDS completed yes Care OB Visit Log OB Flowsheet Initial Weight: Not Recorded Date <del>?</del> EGA Weight BP Alb Glu CTX Pres Fundal ht FHR Mov Dilation Station Effacement Hx Notes Visit Note 06/02/25 <del>?</del> 34w 6d 142.201 kg 123/79 absent cephalic 36 142 33yo at 34w with h/o 3 prior C-sections, obesity, anterior marginal placenta, reports fatigue and pelvic pressure, FHR 142, no ctx or cramping, ligation consent signed. Plan: Schedule C/S + BTL for 07/03 @12:30 (arrive 10:00), give pre-op instructions 1 week prior, follow-up in 2w then weekly, GBS swab in 1w 06/16/25 <del>?</del> 36w 6d 142.428 kg 126/85 absent cephalic 37 145 progressing normally at 36-37 weeks gestation. heart rate 155 bpm, within normal range. Ultrasound findings unremarkable with cephalic presentation and anterior placenta, no previa noted. Patient denies contractions or other concerning symptoms. Group B Streptococcus (GBS) screening swab obtained. Plan - Follow up in one week - Scan ultrasound report into patient's chart for reference during delivery 06/26/25 <del>?</del> 38w 2d 143.789 kg 125/79 absent cephalic 39 152 37-week progressing normally. Negative culture swab results. Patient reports no contractions, active movement, and denies leaking, bleeding, or spotting. heart rate 152 bpm, which is within normal range. Planned section scheduled for next week. - Scheduled next week at 12:30 PM - Patient to check in at 10:00 AM on the day of surgery - No food or drink after midnight the night before surgery - No further appointments scheduled before - If any issues arise, patient instructed to come to the unit sooner KIMBERLEE Calculator Estimated Delivery Date Method Current WG Current Estimate 07/08/25 LMP (Certain) 46w 3d Notes Visit Date: 06/02/25 Last Updated by: Richie Asher MD Problem List - - Obesity - Multiparity - History of 3 sections - Anterior marginal placenta HPI Interval History: Alondra Cruz presents for a 2-week postoperative visit following a repeat section with bilateral tubal ligation performed on July 03, 2025. The patient reports feeling good overall and has no specific complaints. The patient's incision is healing well, with the edges starting to join. She still has tape over the incision site. The patient inquires about wound care, specifically asking if she should clean the incision with alcohol. She is also interested in resuming activities, particularly walking and taking a ferry trip. The patient is not experiencing any constipation or bladder problems. She is caring for her , though it is not specified whether she is or bottle-feeding. The baby is reported to be doing well. She is a 29-year-old female with an obstetric history of G2 T2 L2. Her most recent delivery was a repeat section on July 03, 2025. The patient has a baby and has been cleared for light walking with a binder. 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 Exam Narrative Physical exam: - Abdominal: Incision site examined. Edges of incision have started joining. No signs of infection observed. Some dried blood clots noted. General General Appearance: alert, in no apparent distress and healthy appearing Head Head exam: atraumatic Neck Neck exam: Present normal inspection and trachea midline Chest Chest inspection: Present normal inspection and symmetric chest wall rise External exam: Present normal external exam; Absent tenderness Neuro Neurological exam: Present oriented X3 Psych Psychiatric exam: Present normal affect and normal mood Assessment & Plan Diagnosis / Problem List (1) Encounter for routine follow-up: Status: Acute (2) Encounter for sterilization: Status: Acute (3) Maternal care for low transverse scar from previous delivery: Status: Acute Plan Status post repeat section with bilateral tubal ligation: - 2 weeks post-operative from repeat section with bilateral tubal ligation performed July 03, 2025. - Incision site healing well without signs of infection. - Edges of incision have started joining with some dried blood clots noted but no active infection observed. Plan: - Keep incision site dry. - Allow incision to air dry after showering or if sweaty. - Avoid cleaning with alcohol or applying band-aids. - Continue to wear abdominal binder as needed. - Gradually increase activity as tolerated: ? May drive and perform light work. ? Avoid lifting more than 30 pounds. ? May walk with caution, using binder for support. - Follow-up appointment scheduled in 1 month.
== END 2025-07-15 12:15 | disposition home or self-care (01) ==
LOC: HODSOBC 11:20
PROVIDERS: Supervising Provider Obstetrics & Gynecology; Visit Provider Obstetrics & Gynecology
DX: Z39.2 Encounter for routine postpartum follow-up (principal); Z98.51 Tubal ligation status
CPT/HCPCS: 99213; G0463

== ENCOUNTER 2025-08-18 11:44 | Outpatient (AMB) | payer MEDICAID, SELFPAY ==
[2025-08-18 11:47] VITALS: BP 118/76; PULSE 64; RESP 17; TEMP 36.4; O2SAT 95; BMI 48.9
--- NOTE | 2025-08-18 11:47 | AMBOBPPN_ITS ---
Vital Signs 08/18/25 11:47 Height 1.68 m Height Method Stated Weight 138.005 kg Weight Measurement Method Standing Scale BMI 48.9 BP 118/76 Blood Pressure Source Automatic Cuff Blood Pressure Location Right Upper Arm Position Sitting Respiration 17 Pulse 64 Pulse Source Monitor Temp 97.5 F Temp Source Temporal Artery Scan Pulse Oximetry (%) 95 Oxygen Delivery Method Room Air Allergies/Home Meds Allergies & Medications Allergies No Known Allergies Allergy (Verified 08/18/25 11:49) Intake Visit Data Collection New Patient or Established: Established Patient (seen at [facility] within 3 years) Reason for Visit:: PP FOLLOW UP Seen by Clinical Staff ONLY (RN/MA): No [place] Required: No Do You Feel Safe at Home: Yes Authorities Contacted: N/A PCP or OBGYN visit in last 3 months: Yes Date of Last PCP or OBGYN visit: 07/15/25 Hx Now: No Are you currently on any form of Control: No Pain Present Currently: No Pain Scale Used: Masters-Cotton/Numerical Pain scale:: 0 Smoking Status Smoking Status: Never smoker GAMING COMMISSIONER: Past Medical History Past Medical History: No Hx Neurological Disorders, No Hx Breast Cancer, No Hx Cardiac Disorders, No Hx Cancer, No Hx Blood Disorders, Yes Hx Gastrointestinal Disorders, No Hx Renal Disease, No Hx Diabetes Mellitus Type 1 and No Hx Diabetes Mellitus Type 2 Questionnaires Covid-19 Vaccine Questionnaire Has patient been vacinated for Covid-19 Have you been vacinated for Covid-19: No Social History Living Situation History Marital Status: Lives With: Family Housing: House Tobacco History Smoking Status: Never smoker Second Hand Smoke Exposure: No Alcohol History Alcohol Intake: Never Domestic Abuse History Do You Feel Safe at Home: Yes EPDS - PP Depression Screening [place] Pospartum Depression Screen I have been able to laugh and see the funny side of things: (0) As much as I always could I have looked forward with enjoyment to things: (0) As much as I ever did I have blamed myself unnecessarily when things went wrong: (0) No, never I have been anxious or worried for no good reason: (0) No, not at all I have felt scared or panicky for no very good reason: (0) No, not at all Things have been getting on top of me: (0) No, I have been coping as well as ever I have been so unhappy that I have had difficulty sleeping: (0) No, not at all I have felt sad or miserable: (0) No, not at all I have been so unhappy that I have been crying: (0) No, never The thought of harming myself has occurred to me: (0) Never Care OB Visit Log OB Flowsheet Initial Weight: Not Recorded Date -?-?-?-?-?-?-?-?-?-?-?-?- EGA Weight BP Alb Glu CTX Pres Fundal ht FHR Mov Dilation Station Effacement Hx Notes Visit Note 06/02/25 -?-?-?-?-?-?-?-?-?-?-?-?- 34w 6d 142.201 kg 123/79 absent cephalic 36 14 2 33yo at 34w with h/o 3 prior C-sections, obesity, anterior marginal placenta, reports fatigue and pelvic pressure, FHR 142, no ctx or cramping, ligation consent signed. Plan: Schedule C/S + BTL for 07/03 @12:30 (arrive 10:00), give pre-op instructions 1 week prior, follow-up in 2w then weekly, GBS swab in 1w 06/16/25 -?-?-?-?-?-?-?-?-?-?-?-?- 36w 6d 142.428 kg 126/85 absent cephalic 37 14 5 progressing normally at 36-37 weeks gestation. heart rate 155 bpm, within normal range. Ultrasound findings unremarkable with cephalic presentation and anterior placenta, no previa noted. Patient denies contractions or other concerning symptoms. Group B Streptococcus (GBS) screening swab obtained. Plan - Follow up in one week - Scan ultrasound report into patient's chart for reference during delivery 06/26/25 -?-?-?-?-?-?-?-?-?-?-?-?- 38w 2d 143.789 kg 125/79 absent cephalic 39 15 2 37-week progressing normally. Negative culture swab results. Patient reports no contractions, active movement, and denies leaking, bleeding, or spotting. heart rate 152 bpm, which is within normal range. Planned section scheduled for next week. - Sched uled next week at 12:30 PM - Patient to check in at 10:00 AM on the day of surgery - No food or drink after midnight the ni ght before surgery - No further appointments scheduled befo re - If any issues arise, patient instructe d to come to the unit sooner KIMBERLEE Calculator Estimated Delivery Date Method Current WG Current Estimate 07/08/25 LMP (Certain) 45w 6d Notes Visit Date: 06/02/25 Last Updated by: Richie Asher MD Problem List - - Obesity - Multiparity - History of 3 sections - Anterior marginal placenta HPI Interval History: Alondra Cruz presents for her visit following a repeat section performed on July 03, 2025. This was her fourth section, during which she also underwent bilateral salpingectomy. The patient reports she is doing well more than a month post-operatively. She describes experiencing some internal burning sensation, which she characterizes as nasty but acknowledges may be part of the normal healing process. She has a history of four prior deliveries, with the most recent being July 03, 2025. The patient is not currently . She is a female with an obstetric history of G4 T0 L4. ROS: Negative except as stated above, limited to GAMING COMMISSIONER and pertinent complaints. Exam General General Appearance: alert, in no apparent distress and healthy appearing Head Head exam: atraumatic Neck Neck exam: Present normal inspection and trachea midline Chest Chest inspection: Present normal inspection and symmetric chest wall rise External exam: Present normal external exam; Absent tenderness Neuro Neurological exam: Present oriented X3 Psych Psychiatric exam: Present normal affect and normal mood Office Procedures OBC Clinic LOC & Office Proc's Nursing/Assessment Patient Status: Established Patient OB Clinic Nursing Assessment: Medication Reconciliation, Update PMH in EMR and Vital Signs OB Clinic Coordination of Care: Complex Care and Chronic Disease 1-5, Education Complex Pt/Fam, Consent,records obtained, informed consent and Staff clarify orders Established Patient Charge Established Patient Point Assignment: 90 Established Patient Point Charge: EP Level 3 (80-115) Antepartum Initial or Follow-up Antepartum Follow up Visit: Yes Assessment & Plan Diagnosis / Problem List (1) Encounter for sterilization: Status: Acute (2) Maternal care for low transverse scar from previous delivery: Status: Acute (3) Encounter for routine follow-up: Status: Acute Plan status post section: - Approximately 6 weeks following fourth repeat section performed on July 03, 2025. - Complete healing of surgical site with no complications noted. - Reports internal burning sensation consistent with normal healing process. Plan: - Patient cleared from obstetric care. - Advised that internal burning sensation is normal part of healing process and can last up to 3 months as sutures dissolve over 90 days. - No further obstetric follow-up appointments needed. Status post bilateral salpingectomy: - Underwent bilateral salpingectomy (complete tube removal with cutting and cauterization) concurrent with section for permanent sterilization. - Provides 100% efficacy for contraception with no risk of failure. Plan: - No contraception needed due to permanent sterilization. - Patient counseled on 100% efficacy of procedure.
== END 2025-08-18 12:06 | disposition home or self-care (01) ==
LOC: HODSOBC 11:44
PROVIDERS: Supervising Provider Obstetrics & Gynecology; Visit Provider Obstetrics & Gynecology
DX: Z39.2 Encounter for routine postpartum follow-up (principal); Z98.51 Tubal ligation status
CPT/HCPCS: 99213; Z1034; G0463